=== PATIENT | female | born 1945 | race Caucasian/White ===

== ENCOUNTER 2017-08-01 05:15 | Day surgery (SDC) | payer MEDICARE ==
[2017-07-25 09:57] LABS: APPEARANCE,URINE CLEAR; BILIRUBIN,URINE NEGATIVE (NEGATIVE); GLUCOSE, URINE NEGATIVE (NEGATIVE); KETONES,URINE NEGATIVE (NEGATIVE); LEUKOCYTE ESTERASE,URINE TRACE (NEGATIVE); NITRITE,URINE NEGATIVE (NEGATIVE); PROTEIN,URINE NEGATIVE (NEGATIVE); URINE SPECIFIC GRAVITY 1.005; UROBILINOGEN,URINE NEGATIVE mg/dL (<2.0)
[2017-07-25 10:48] LABS: ABSOLUTE EOSINOPHILS # (AUTO) 0.1 10^3/uL (0.0-0.6); ABSOLUTE LYMPHOCYTES (AUTO) 1.6 10^3/uL (0.5-4.7); ABSOLUTE MONOCYTES (AUTO) 0.4 10^3/uL (0.1-1.4); ABSOLUTE NEUT (AUTO) 4.6 10^3/uL (1.7-8.2); BASOPHILS % (AUTO) 0.4 % (0-2); EOSINOPHILS % (AUTO) 1.6 % (0-6); HEMATOCRIT 41.7 % (36.0-47.0); HEMOGLOBIN 13.9 g/dL (12.0-15.5); LYMPHOCYTES % (AUTO) 23.6 % (13-45); MEAN CORPUSCULAR HEMOGLOBIN 30.3 pg (27.0-33.4); MEAN CORPUSCULAR HGB CONC 33.4 g/dL (32.0-36.0); MEAN CORPUSCULAR VOLUME 91 fl (80-97); MONOCYTES % (AUTO) 6.4 % (3-13); RED BLOOD COUNT 4.59 10^6/uL (3.72-5.28); RED CELL DISTRIBUTION WIDTH 13.8 % (11.5-14.0); WHITE BLOOD COUNT 6.8 10^3/uL (4.0-10.5)
[2017-07-25 11:06] LABS: ANION GAP 13 (5-19); BLOOD UREA NITROGEN 30 mg/dL (7-20); CALCIUM 10.2 mg/dL (8.4-10.2); CARBON DIOXIDE 30 mmol/L (22-30); CHLORIDE 103 mmol/L (98-107); CREATININE RESULT 1.28 mg/dL (0.52-1.25); GLUCOSE 82 mg/dL (75-110); POTASSIUM 4.7 mmol/L (3.6-5.0); SODIUM 146.4 mmol/L (137-145)
--- NOTE | 2017-07-25 11:28 | RADIOLOGY REPORT (SQ) ---
EXAM DESCRIPTION: CHEST PA/LATERAL COMPLETED DATE/TIME: 07/25/2017 10:26 am REASON FOR STUDY: PRE OP COMPARISON: 07/28/2016. TECHNIQUE: Frontal and lateral radiographic views of the chest acquired. NUMBER OF VIEWS: Two view. LIMITATIONS: None. FINDINGS: LUNGS AND PLEURA: No opacities, masses or pneumothorax. No pleural effusion. MEDIASTINUM AND HILAR STRUCTURES: No masses or contour abnormalities. HEART AND VASCULAR STRUCTURES: Mild left ventricular prominence. Uncoiling and mild ectasia of the a gigi. Stable. No evidence of failure. BONES: No acute findings. HARDWARE: None in the chest. OTHER: No other significant finding. IMPRESSION: Stable chest without acute or suspicious findings. TECHNICAL DOCUMENTATION: JOB ID: [id number] [employer]- All Rights Reserved
--- NOTE | 2017-07-25 12:22 | EKG REPORT ---
SEVERITY:- ABNORMAL ECG - SINUS RHYTHM LEFT ANTERIOR FASCICULAR BLOCK BORDERLINE T ABNORMALITIES, INFERIOR LEADS : Confirmed by: Ren Reyes MD 25-Jul-2017 12:22:14
[~2017-08-01 05:15] MED LIST: CEFAZOLIN 2 GM/D5W RTU 2 GM/50 ML RTUPB IV PRN; LACTATED RINGERS 1000 ML IV PRN; LIDOCAINE 0.5% INJ-PF (5 MG/ML) 50 ML SDV SUBCUT PRN
[2017-08-01] MEDS ORDERED: ALBUTEROL SULFATE 0.083% NEB 2.5 MG/3 ML AMPUL NEB ONE (06:00)
[2017-08-01 06:22] LABS: PROTHROMBIN TIME 12.3 SEC (11.4-15.4)
[2017-08-01 06:23] LABS: PARTIAL THROMBOPLASTIN TIME 26.3 SEC (23.5-35.8)
[2017-08-01] MEDS ORDERED: LIDOCAINE 0.5% INJ-PF (5 MG/ML) 50 ML SDV ONE (06:37)
[2017-08-01] MEDS ORDERED: BUPIVACAINE HCL 0.25 % INJ/PF (2.5 MG/1 ML) 30 ML VIAL ONE (07:22)
[2017-08-01] MEDS ORDERED: ONDANSETRON HCL INJ/PF 4 MG/2 ML SDV IV PRN (07:44)
[2017-08-01] MEDS ORDERED: FENTANYL CITRATE INJ/PF 100 MCG/2 ML AMPUL IV PRN ×3 (07:44)
[2017-08-01] MEDS ORDERED: PROMETHAZINE HCL INJ 25 MG/1 ML VIAL IV PRN ×2 (07:44)
[2017-08-01] MEDS ORDERED: DIPHENHYDRAMINE HCL 50 MG/ML VIAL IV PRN (07:44)
--- NOTE | 2017-08-01 07:47 | Operative Report ---
Operative Report DATE OF SURGERY: 08/01/17 PREOPERATIVE DIAGNOSIS: Right long trigger finger OPERATION: Right long finger A1 mt release SURGEON: INEZ PONCE ANESTHESIA: LMAC ESTIMATED BLOOD LOSS: Minimal PROCEDURE: With the patient supine abdomen. The right upper extremities prepped and draped in sterile fashion. The skin overlying the palmar crease of the right long fingers and still infiltrated with a combination of Marcaine, and lidocaine , subsequently 1 cm transverse incision is made in the line with the palmar crease and blunt dissection used to expose the underlying flexor tendon sheath. The fingers move through a range of motion to look at the binding through the A1 mt. The A1 mt was then transected using a 15 blade. The motion of the flexor tendons is again observed dynamically and all impingement to its structure and motion has been released. The wound is irrigated and closed with interrupted Vicryl followed by sterile compressive dressing. The patient's return to the PACU in satisfactory condition.
[2017-08-01] MEDS ORDERED: LIDOCAINE 2% INJ-PF (20 MG/ML) 10 ML AMPUL ONE (08:02)
[2017-08-01] MEDS ORDERED: PROPOFOL INJ 200 MG/20 ML VIAL IV ONE (08:03)
[2017-08-01] MEDS ORDERED: FENTANYL CITRATE INJ/PF 100 MCG/2 ML AMPUL ONE (08:03)
[2017-08-01] MEDS ORDERED: MIDAZOLAM 2 MG/2 ML INJ ONE (08:03)
[2017-08-01] MEDS ORDERED: IBUPROFEN INJ 800 MG/8 ML VIAL IV ONE (08:03)
[2017-08-01] MEDS ORDERED: ONDANSETRON 4 MG TAB.RAPDIS SL PRN (08:21)
[2017-08-01] MEDS ORDERED: HYDROCODONE/ACETAMINOPHEN 5-325 MG TABLET PO PRN (08:21)
[2017-08-01 09:38] VITALS: BP 124/83
== END 2017-08-01 09:30 | disposition home or self-care (01) ==
LOC: OROUT 05:15
PROVIDERS: ATTEND Orthopaedic Surgery
PROC: 0LN70ZZ Release Right Hand Tendon, Open Approach (ICD-10-PCS; principal; 2017-08-01 07:30)
DX: M65.331 Trigger finger, right middle finger (principal); Z79.01 Long term (current) use of anticoagulants; Z79.899 Other long term (current) drug therapy; Z79.51 Long term (current) use of inhaled steroids; J44.9 Chronic obstructive pulmonary disease, unspecified; I10 Essential (primary) hypertension; K21.9 Gastro-esophageal reflux disease without esophagitis; E66.9 Obesity, unspecified; Z68.35 Body mass index [BMI] 35.0-35.9, adult; Z88.5 Allergy status to narcotic agent; Z91.040 Latex allergy status; Z79.82 Long term (current) use of aspirin
CPT/HCPCS: 93005; 36415 ×2; 84132; 85025; 85610; 85730; 80048; 81001; 71020; 93010; 94640; 26055; J2250; J3010; J3490 ×2; J2704; A9270; J1741; 1810

== ENCOUNTER 2019-04-06 14:45 | Emergency (ER) | payer MEDICARE ==
[2019-04-06] MEDS ORDERED: CYCLOBENZAPRINE HCL 10 MG TABLET PO ONE ×2 (15:47→15:57)
[2019-04-06] MEDS ORDERED: LIDOCAINE 5% (700 MG) TRANSDERMAL ADH..PATCH TP ONE (15:47)
--- NOTE | 2019-04-06 16:02 | ER Document Report ---
HPI - HPI Patient complains to provider of: neck and left arm pain Time Seen by Provider: 04/06/19 15:47 Pain Level: 5 Context: Patient is a 73-year-old female presents to the emergency for chronic neck and left arm pain. Patient states she received an MRI on Sunday of her spine. States she was told she had spinal stenosis. States her primary care provider is Dr. Maher. States she is being set up with pain management on Sunday or Sunday of this week. States she is been taking Mobic and [id number] Tylenol with no relief which is why she presents to the emergency room. Patient states pain has been constant for the last couple of months. Patient's denying any increase or change in the pain at all, denies trauma or injury. denies shortness of breath, chest pain, abdominal pain, nausea, vomiting. Patient's denying any loss of bowel or bladder. Patient's denying any urinary retention, numbness or tingling in any extremity. States on 03/24/[address] her primary care provider [address]. Maher placed her on a 7-day course of steroids. States that did not help either. Patient openly admits that she "cannot wait to get into pain management because the pain is so bad." Past medical history: Hypertension, congestive heart failure, spinal stenosis, COPD, GERD. Medications: Amlodipine, atorvastatin, Lasix, potassium, meloxicam, Pro Air, Symbicort, omeprazole Allergies: Latex, morphine, indomethacin, Advil, naproxen - REPRODUCTIVE Reproductive: DENIES: : Past Medical History - General Information source: Patient - Social History Smoking Status: Unknown if Ever Smoked Family History: Reviewed & Not Pertinent, Other - Past Medical History Cardiac Medical History: Reports: Hx Hypercholesterolemia, Hx Hypertension Denies: Hx Atrial Fibrillation, Hx Congestive Heart Failure, Hx Coronary Artery Disease, Hx Heart Attack, Hx Peripheral Vascular Disease, Hx Pulmonary Embolism, Hx Heart Murmur Pulmonary Medical History: Reports: Hx COPD, Hx Sleep Apnea - CPAP (doesn't use) Denies: Hx Asthma, Hx Bronchitis - once many years ago, Hx Pneumonia, Hx Respiratory Failure, Hx Tuberculosis Neurological Medical History: Denies: Hx Cerebrovascular Accident, Hx Seizures Renal/ Medical History: Denies: Hx End Stage Renal Disease, Hx Kidney Stones, Hx Ovarian Cysts, Hx Peritoneal Dialysis, Hx Pelvic Inflammatory Disease Malignancy Medical History: Reports: Hx Breast Cancer - remission-Right Breast. Denies: Hx Cervical Cancer, Hx Lung Cancer, Hx Ovarian Cancer GI Medical History: Reports: Hx Gastroesophageal Reflux Disease - takes meds. Denies: Hx Crohn's Disease, Hx Hiatal Hernia, Hx Irritable Bowel, Hx Liver Failure, Hx Pancreatitis, Hx Ulcer Musculoskeletal Medical History: Reports Hx Arthritis, Denies Hx Fibromyalgia, Denies Hx Muscular Dystrophy Psychiatric Medical History: Reports: Hx Depression - many years ago Denies: Hx Bipolar Disorder, Hx Post Traumatic Stress Disorder, Hx Schizophrenia Traumatic Medical History: Reports: Hx Fractures - left leg/patella Past Surgical History: Reports: Hx Breast Surgery, Hx Cholecystectomy, Hx Hysterectomy, Hx Orthopedic Surgery, Hx Tubal Ligation. Denies: Hx Appendectomy, Hx Section, Hx Colostomy, Hx Coronary Artery Bypass Graft, Hx Gastric Bypass Surgery, Hx Herniorrhaphy, Hx Mastectomy, Hx Pacemaker, Hx Tonsillectomy - Immunizations Hx Pneumococcal Vaccination: 10/15/15 Vertical Provider Document - CONSTITUTIONAL Agree With Documented VS: Yes Notes: GENERAL: Alert, interacts well. No acute distress. HEAD: Normocephalic, atraumatic. EYES: Pupils equal, round, and reactive to light. Extraocular movements intact. ENT: Oral mucosa moist, tongue midline. NECK: Full range of motion. Supple. Trachea midline. Generalized tenderness cervical midline and left paraspinal region. LUNGS: Clear to auscultation bilaterally, no wheezes, rales, or rhonchi. No respiratory distress. HEART: Regular rate and rhythm. No murmur ABDOMEN: Soft, non-tender. Non-distended. Bowel sounds present in all 4 quadrants. EXTREMITIES: Moves all 4 extremities spontaneously. No edema, normal radial and dorsalis pedis pulses bilaterally. No cyanosis. 5 out of 5 strength all 4 extremities. Decreased range of motion left shoulder secondary due to pain. Capillary refill less than 2 seconds bilateral upper extremities. BACK: no thoracic, lumbar midline tenderness. No saddle anesthesia, normal distal neurovascular exam. NEUROLOGICAL: Alert and oriented x3. Normal speech. cranial nerves II through XII grossly intact PSYCH: Normal affect, normal mood. SKIN: Warm, dry, normal turgor. No rashes or lesions noted. - INFECTION CONTROL TRAVEL OUTSIDE OF THE [place] IN LAST 30 DAYS: No Course - Re-evaluation Re-evalutation: 04/06/19 16:02 I have discussed at length with patient treatment options for chronic neck and left arm pain. I discussed the importance of following up with her primary care provider and the pain management appointment which she has on Sunday or Sunday of this week. I have also discussed the use of Lidoderm patches and a very low dose muscle relaxer based on patient's age. Patient is wishing to decline 1 dose of oral narcotics in the emergency room. Patient openly admits "I just did not know what else to do." Patient voices that she will wait until her appointment with pain management for continued care. Close return precautions discussed. Patient stable for discharge. 04/06/19 16:11 Patient's blood pressure was noted to be elevated at today's visit. States she is unsure if she took all of her at home medications. States she typically takes 5 mg of amlodipine in the morning. Repeat blood pressure taken by myself manually was 140/80. Patient denies headache, chest pain, shortness of breath, dizziness, weakness. Only complaint is her chronic neck and left shoulder pain. - Vital Signs Vital signs: Temp Pulse Resp BP Pulse Ox 98.1 F 65 20 183/115 H 98 04/06/19 14:53 04/06/19 14:53 04/06/19 14:53 04/06/19 14:53 04/06/19 14:53 Discharge - Discharge Clinical Impression: Spinal stenosis Qualifiers: Spinal region: unspecified Qualified Code(s): M48.00 - Spinal stenosis, site unspecified Left shoulder pain Qualifiers: Chronicity: chronic Qualified Code(s): M25.512 - Pain in left shoulder Condition: Stable Disposition: HOME, SELF-CARE Additional Instructions: As we discussed you have been seen and treated in the emergency department for your chronic neck and left arm pain. Unfortunately we are limited as to the treatment modalities we are able to offer her chronic pain. As we discussed you can buy [id number] Lidoderm patches. Continue to take your Mobic and Tylenol as prescribed. Please also use prescription muscle relaxers sparingly and as needed. Please make sure you keep your appointment with pain management for tomorrow. Please also make sure you take all your other medications to include your hypertension agents. Please immediately return to the emergency room for any concerns. Prescriptions: Cyclobenzaprine HCl [Flexeril 5 mg Tablet] 5 mg PO BID #5 tablet Forms: Elevated Blood Pressure Referrals: YUKI MAHER MD [Primary Care Provider] - Follow up as needed INEZ PONCE MD [ACTIVE STAFF] - Follow up as needed
[2019-04-06] MEDS ORDERED: AMLODIPINE BESYLATE 5 MG TABLET PO ONE (16:11)
[2019-04-06 16:19] VITALS: BP 140/80
== END 2019-04-06 16:20 | disposition home or self-care (01) ==
LOC: ER 14:45
DX: M48.00 Spinal stenosis, site unspecified (principal); M25.512 Pain in left shoulder; M54.2 Cervicalgia; M79.602 Pain in left arm; I11.0 Hypertensive heart disease with heart failure; I50.9 Heart failure, unspecified; J44.9 Chronic obstructive pulmonary disease, unspecified; Z79.899 Other long term (current) drug therapy
CPT/HCPCS: 99283; A9270